=== PATIENT | male | born 1970 | race Caucasian/White ===

== ENCOUNTER 2017-04-11 10:43 | Emergency (ER) | payer BC ==
[~2017-04-11] VITALS: Ht 198.1 cm; Wt 141.5 kg
[2017-04-11 10:52] VITALS: BP 134/92
== END 2017-04-11 11:52 | disposition home or self-care (01) ==
LOC: ED 10:43
DX: S61.231A Puncture wound without foreign body of left index finger without damage to nail, initial encounter (principal); I10 Essential (primary) hypertension; Z88.1 Allergy status to other antibiotic agents; X58.XXXA Exposure to other specified factors, initial encounter; Y93.89 Activity, other specified; Y99.8 Other external cause status; Y92.89 Other specified places as the place of occurrence of the external cause
CPT/HCPCS: 90715; Q0092